=== PATIENT | male | born 1965 | race Caucasian/White ===

== ENCOUNTER 2019-08-06 19:47 | Emergency (ER) | payer OTHER ==
[~2019-08-06] VITALS: Ht 180.3 cm; Wt 108.8 kg
[2019-08-06 19:50] VITALS: BP 162/89
--- NOTE | 2019-08-06 19:53 | PHYS DOC ---
General Adult HPI: HPI: Patient is a 54 year old MALE who presents with BACK pain. Pt. not in room at 2123. Review of Systems: Review of Systems: Pt.not in room Heart Score: Risk Factors: Risk Factors: DM, Current or recent (<one month) smoker, HTN, HLP, family histo ry of CAD, obesity. Risk Scores: Score 0 - 3: 2.5% MACE over next 6 weeks - Discharge Home Score 4 - 6: 20.3% MACE over next 6 weeks - Admit for Clinical Observation Score 7 - 10: 72.7% MACE over next 6 weeks - Early Invasive Strategies Physical Exam: PE: Pt. not in room EKG: EKG: [] Radiology/Procedures: Radiology/Procedures: [] Course & Med Decision Making: Course & Med Decision Making Pertinent Labs and Imaging studies reviewed. (See chart for details) Pt. not in room. Note pt. did return to ED to complete his exam later in the night. [] Dragon Disclaimer: Dragon Disclaimer: This electronic medical record was generated, in whole or in part, using a voice recognition dictation system. Departure Departure: Disposition: 01 HOME/RESIDENCE PRIOR TO ADM Condition: STABLE Referrals: PCP,NO (PCP) Dragon Disclaimer This chart was dictated in whole or in part using Voice Recognition software in a busy, high-work load, and often noisy Emergency Department environment. It may contain unintended and wholly unrecognized errors or omissions. Dragon Disclaimer This chart was dictated in whole or in part using Voice Recognition software in a busy, high-work load, and often noisy Emergency Department environment. It may contain unintended and wholly unrecognized errors or omissions. GUSTABO BENAVIDES MD Aug 06, 2019 19:53
[2019-08-07] MEDS ORDERED: HYDR-1179 PO (02:37)
== END 2019-08-06 21:23 | disposition home or self-care (01) ==
LOC: ER 19:47
DX: M54.5 Low back pain (principal); Z53.21 Procedure and treatment not carried out due to patient leaving prior to being seen by health care provider

== ENCOUNTER 2019-08-06 22:30 | Emergency (ER) | payer OTHER ==
[~2019-08-06] VITALS: Ht 180.3 cm; Wt 108.8 kg
--- NOTE | 2019-08-06 22:35 | PHYS DOC ---
Past History Past Medical History: [place], Sciatica Additional Past Surgical Histo: ladder in neck, rods in right leg, caridiac stent Alcohol Use: None Drug Use: Marijuana General Adult HPI: HPI: ".. I was here earlier... but got impatient... and left... I decided to come back...."... " I hurting too much..."..."..I had pain off and on... months...but it gotten really bad ... after I over ate yesterday...." Patient is a 54 year old male who presents with complaints of Rt. lower abdomen pain. Patient denies any intake of bad food. Did overeat yesterday but no one else got sick eating the same food. Patient did have a stool today. Patient denies any problems with urination. Patient denies any trauma. Patient denies any recent travel outside the [place] area. Patient denies any significant ill contacts. No family history of gallbladder disease, colitis, kidney stones. 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 Patient denies history of lumbosacral pain except for the last 2 days. Patient denies any significant health problems. Patient does have some recent complaints of constipation. Review of Systems: Review of Systems: Constitutional: Denies fever or chills Eyes: Denies change in visual acuity HENT: Denies nasal congestion or sore throat Respiratory: Denies cough or shortness of breath Cardiovascular: Denies chest pain or edema GI: Complains of right lower abdominal pain, nausea,. Denies vomiting, bloody stools or diarrhea. Some complaints of constipation : Denies dysuria Musculoskeletal: Denies back pain or joint pain Integument: Denies rash Neurologic: Denies headache, focal weakness or sensory changes Endocrine: Denies polyuria or polydipsia Lymphatic: Denies swollen glands Psychiatric: Denies depression or anxiety Heart Score: Risk Factors: Risk Factors: DM, Current or recent (<one month) smoker, HTN, HLP, family history of CAD, obesity. Risk Scores: Score 0 - 3: 2.5% MACE over next 6 weeks - Discharge Home Score 4 - 6: 20.3% MACE over next 6 weeks - Admit for Clinical Observation Score 7 - 10: 72.7% MACE over next 6 weeks - Early Invasive Strategies Family History: Family History: Noncontributory to presentation Current Medications: Current Meds: See nursing for home meds Allergies: Allergies: Allergies Coded Allergies Type Severity Reaction Last Updated Verified No Known Allergies Allergy Unknown 08/06/19 Yes Physical Exam: PE: Constitutional: Moderate acute distress, non-toxic appearance. [] HENT: Normocephalic, atraumatic, bilateral external ears normal, oropharynx moist, no oral exudates, nose normal. [] Eyes: PERRLA, EOMI, conjunctiva normal, no discharge. [] Neck: Normal range of motion, no tenderness, supple, no stridor. [Scar Cardiovascular: Bradycardic heart rate regular rhythm, no murmur [] PM slightly to the left Lungs & Thorax: Bilateral breath sounds equal at apex on auscultation [] Abdomen: Bowel sounds normal, soft, has right lower quadrant tenderness, no masses, no pulsatile masses. Obese. Circumcised male. Testicles nontender. Patient declined rectal exam at this time. Skin: Warm, dry, no erythema, no rash. [] Back: No tenderness, no CVA tenderness. [] Extremities: No tenderness, no cyanosis, no clubbing, ROM intact, no edema. Scar right leg Neurologic: Alert and oriented X 3, normal motor function, normal sensory function, no focal deficits noted. [] Psychologic: Affect anxious, judgement normal, mood normal. [] EKG: EKG: My interpretation of EKG shows a sinus rhythm at 60 bpm. No findings of acute STEMI with contralateral changes. [] Radiology/Procedures: Radiology/Procedures: [[address] [address] IMAGING REPORT Signed PATIENT: ADIN HOWARD EACCOUNT: [id number] : 1965 LOCATION: ER AGE: 54 SEX: M EXAM STATUS: REG ER ORD. PHYSICIAN: GUSTABO BENAVIDES MD REASON: pain Rt. lower ABDOMEN, LBP - RIGHT SIDE, NKI PROCEDURE: CT LUMBAR SPINE WO CONTRAST CT lumbar spine without contrast. CT abdomen and pelvis with contrast. Contrast: 75 mL Omnipaque 300 intravenous contrast, and oral contrast. HISTORY: Right lower quadrant pain, right lower abdomen pain, low back pain right side. Lumbar spine findings: Lumbar vertebral body height and alignment intact. No fracture. No spondylolysis defect. Aortoiliac calcified plaque. Paraspinal tissues are unremarkable. Lumbar disc bulges are present largest is a bulky L5-S1 disc osteophyte which combined with lower lumbar facet spurring contributes to severe spinal canal and moderate to severe neural foraminal stenoses. There is lesser fgoo-sr-ruxknnoq spinal canal and neural foraminal stenosis at L4-5. IMPRESSION: No acute osseous injury of the lumbar spine. Lumbar disc disease and arthritis as described above. CT abdomen findings: Right lower lobe 5 mm solid nodule with adjacent linear scarring or atelectasis image 1-2. Liver, gallbladder, pancreas, spleen, adrenal glands and left kidney unremarkable. Subcentimeter right renal lower pole hypodensity too small to characterize due to volume averaging most likely a small cyst. Appendix is negative. No obstruction or inflammatory changes in GI tract. No abdominal fluid or adenopathy. 1 cm fatty umbilical abdominal wall hernia. Pelvis findings: Bladder, prostate, rectum and bones are unremarkable. No pelvic fluid or adenopathy. IMPRESSION: 1. No acute process. The appendix is negative. 2. 5 mm solid nodule of the right lower lobe. Per Fleischner guidelines if the patient has risk factors for malignancy optional CT follow-up in 12 months would be advised, otherwise no follow-up is necessary. Exposure: One or more of the following individualized dose reduction techniques were utilized for this examination: 1. Automated exposure control 2. Adjustment of the mA and/or kV according to patient size 3. Use of iterative reconstruction technique Electronically signed by: Fawn Coles MD (08/07/2019 2:14 AM) [id number] DICTATED AND SIGNED BY: FAWN COLES MD DATE: 08/07/19213 CC: GUSTABO BENAVIDES MD; PCP,NO ~ ][address] [address] IMAGING REPORT Signed PATIENT: ADIN HOWARD EACCOUNT: [id number] : 1965 LOCATION: ER AGE: 54 SEX: M EXAM STATUS: REG ER ORD. PHYSICIAN: GUSTABO BENAVIDES MD REASON: RLQ PAIN AND SPASMS, X A FEW HOURS PROCEDURE: ACUTE ABDOMEN SERIES PA chest and AP upright supine abdomen x-rays HISTORY: Right lower quadrant abdominal pain. FINDINGS: ACDF. Heart size normal. No pulmonary opacities. No pleural effusions. No pneumoperitoneum on the upright chest. There is a moderate volume of stool within the large bowel. Flanks are partially outside the [id number]-ws-[id number]. No dilated bowel loops or abnormal air-fluid levels to suggest ileus or small bowel obstruction. Bones are unremarkable. IMPRESSION: No acute process in the chest. No small bowel obstruction. Moderate volume of stool is present. Electronically signed by: Fawn Coles MD (08/06/2019 11:48 PM) [id number] DICTATED AND SIGNED BY: FAWN COLES MD DATE: 08/06/19 2983 CC: GUSTABO BENAVIDES MD; PCP,NO ~ Course & Med Decision Making: Course & Med Decision Making Pt.to stay on clear fluid diet x 48 hrs. Follow up with primary and review ED labs and workup. Return if any concerns. Pertinent Labs and Imaging studies reviewed. (See chart for details) Impression: 1. Right lower quadrant pain 2. Elevated Lipase 588 3. Constipation 4. Rt.Lower Pul. nodule 5. Multilevel DJD -Lumbar foramen stenosis Moderated to Severe at L5-S1 6. Suspect Sciatica [] Dragon Disclaimer: Charles Disclaimer: This electronic medical record was generated, in whole or in part, using a voice recognition dictation system. Departure Departure: Disposition: HOME/RESIDENCE PRIOR TO ADM Condition: STABLE Referrals: PCP,NO (PCP) Scripts Hydrocodone/Ibuprofen (HYDROCODONE-IBUPROFEN 7.5-200 ) 1 Each Tablet 1 TAB PO PRN Q6HRS PRN for PAIN, #30 TAB 0 Refills Prov: GUSTABO BENAVIDES MD 08/07/19 Dragon Disclaimer This chart was dictated in whole or in part using Voice Recognition software in a busy, high-work load, and often noisy Emergency Department environment. It m ay contain unintended and wholly unrecognized errors or omissions. GUSTABO BENAVIDES MD Aug 06, 2019 22:35
[2019-08-06 22:39] VITALS: BP 162/89
--- NOTE | 2019-08-06 22:58 | EKG ---
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
[2019-08-06] MEDS ORDERED: KETOROLAC 30 MG/ML VIAL. IVP ONE (23:00)
[2019-08-06] MEDS ORDERED: IV RINGERS SOLUTION,LACTATED 1,000 ML IV SCH (23:00)
[2019-08-06] MEDS ORDERED: ONDANSETRON PF 4 MG/2 ML VIAL. IVP ONE (23:00)
[2019-08-06] MEDS ORDERED: FAMOTIDINE 20 MG/2 ML VIAL IVP ONE (23:00)
[2019-08-06 23:28] LABS: BASO % 1 % (0-3); EOS # 0.2 x10^3/uL (0.0-0.7); EOS % 3 % (0-3); HEMATOCRIT 45.1 % (39.0-53.0); LYMPH # 2.7 x10^3/uL (1.0-4.8); LYMPH % 33 % (24-48); MEAN CORPUSCULAR HEMOGLOBIN 31 pg (25-35); MEAN CORPUSCULAR HGB CONC 33 g/dL (31-37); MEAN CORPUSCULAR VOLUME 92 fL (79-100); MONO # 0.8 x10^3/uL (0.0-1.1); MONO % 10 % (0-9); NEUT # 4.3 x10^3uL (1.8-7.7); NEUT % 53 % (31-73); PLATELET COUNT 176 x10^3/uL (140-400); RED BLOOD COUNT 4.89 x10^6/uL (4.30-5.70); RED CELL DISTRIBUTION WIDTH 14.1 % (11.5-14.5); WHITE BLOOD COUNT 8.1 x10^3/uL (4.0-11.0)
[2019-08-06 23:35] LABS: BACTERIA,URINE 0 /HPF (0-FEW); BILIRUBIN,URINE NEG (NEG); CLARITY,URINE CLEAR; COLOR,URINE YELLOW; GLUCOSE,URINE NEG (NEG); NITRITE,URINE NEG (NEG); RBC,URINE 0 /HPF (0-2); UROBILINOGEN,URINE 0.2 mg/dL (0.2 mg/dL); WBC,URINE OCC /HPF (0-4)
[2019-08-06 23:36] LABS: SQUAMOUS EPITHELIAL CELL,UR FEW /LPF
[2019-08-06 23:36] LABS: CALCIUM 8.6 mg/dL (8.5-10.1); CREATININE 0.8 mg/dL (0.7-1.3); GFR 101.1; POTASSIUM 3.8 mmol/L (3.5-5.1)
[2019-08-06 23:38] LABS: AMPHETAMINE/METHAMPHETAMINE NEG (NEG); BARBITURATES NEG (NEG); BENZODIAZEPINES NEG (NEG); CANNABINOIDS POS (NEG); COCAINE NEG (NEG); METHADONE NEG (NEG); OPIATES NEG (NEG); PHENCYCLIDINE NEG (NEG)
[2019-08-06 23:42] LABS: ALBUMIN 3.5 g/dL (3.4-5.0); DIRECT BILIRUBIN 0.1 mg/dL (0.0-0.2); TOTAL BILIRUBIN 0.5 mg/dL (0.2-1.0); TOTAL PROTEIN 6.4 g/dL (6.4-8.2)
--- NOTE | 2019-08-06 23:51 | RAD ---
PA chest and AP upright supine abdomen x-rays HISTORY: Right lower quadrant abdominal pain. FINDINGS: ACDF. Heart size normal. No pulmonary opacities. No pleural effusions. No pneumoperitoneum on the upright chest. There is a moderate volume of stool within the large bowel. Flanks are partially outside the gfmfa-hz-zxze. No dilated bowel loops or abnormal air-fluid levels to suggest ileus or small bowel obstruction. Bones are unremarkable. IMPRESSION: No acute process in the chest. No small bowel obstruction. Moderate volume of stool is present. Electronically signed by: Blas Coles MD (08/06/2019 11:48 PM) [id number]
[2019-08-07] MEDS ORDERED: IOHEXOL 240 MG/ML 50ML VIAL. PO ONE (00:30)
[2019-08-07] MEDS ORDERED: CONTRAST GIVEN MC PRN (00:30)
[2019-08-07] MEDS ORDERED: IOHEXOL 300 MG/ML 75 ML VIAL. IV ONE (00:30)
--- NOTE | 2019-08-07 02:16 | RAD ---
CT lumbar spine without contrast. CT abdomen and pelvis with contrast. Contrast: 75 mL Omnipaque 300 intravenous contrast, and oral contrast. HISTORY: Right lower quadrant pain, right lower abdomen pain, low back pain right side. Lumbar spine findings: Lumbar vertebral body height and alignment intact. No fracture. No spondylolysis defect. Aortoiliac calcified plaque. Paraspinal tissues are unremarkable. Lumbar disc bulges are present largest is a bulky L5-S1 disc osteophyte which combined with lower lumbar facet spurring contributes to severe spinal canal and moderate to severe neural foraminal stenoses. There is lesser zwpi-hr-vluuwzco spinal canal and neural foraminal stenosis at L4-5. IMPRESSION: No acute osseous injury of the lumbar spine. Lumbar disc disease and arthritis as described above. CT abdomen findings: Right lower lobe 5 mm solid nodule with adjacent linear scarring or atelectasis image 1-2. Liver, gallbladder, pancreas, spleen, adrenal glands and left kidney unremarkable. Subcentimeter right renal lower pole hypodensity too small to characterize due to volume averaging most likely a small cyst. Appendix is negative. No obstruction or inflammatory changes in GI tract. No abdominal fluid or adenopathy. 1 cm fatty umbilical abdominal wall hernia. Pelvis findings: Bladder, prostate, rectum and bones are unremarkable. No pelvic fluid or adenopathy. IMPRESSION: 1. No acute process. The appendix is negative. 2. 5 mm solid nodule of the right lower lobe. Per Fleischner guidelines if the patient has risk factors for malignancy optional CT follow-up in 12 months would be advised, otherwise no follow-up is necessary. Exposure: One or more of the following individualized dose reduction techniques were utilized for this examination: 1. Automated exposure control 2. Adjustment of the mA and/or kV according to patient size 3. Use of iterative reconstruction technique Electronically signed by: Blas Coles MD (08/07/2019 2:14 AM) [id number]
[2019-08-07] MEDS ORDERED: MAGNESIUM HYDROXIDE 2,400 MG/30 ML ORAL.SUSP. PO ONE (02:30)
[2019-08-07] MEDS ORDERED: HYDR-1179 PO (02:37)
[2019-08-07] MEDS ORDERED: MAGNESIUM HYDROXIDE 2,400 MG/30 ML ORAL.SUSP. ONE (02:45)
--- NOTE | 2019-08-07 17:04 | EKG ---
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
== END 2019-08-07 02:51 | disposition home or self-care (01) ==
LOC: ER 22:30
DX: K59.00 Constipation, unspecified (principal); R10.31 Right lower quadrant pain; R74.8 Abnormal levels of other serum enzymes; M47.816 Spondylosis without myelopathy or radiculopathy, lumbar region; R91.1 Solitary pulmonary nodule; I25.2 Old myocardial infarction
CPT/HCPCS: 36415; 72131; 74022; 74177; 80048; 80076; 80307; 81001; 82150; 82550; 83605; 83690; 84484; 85025; 85610; 85730; 93005; 96374; 96375; 99285; J1885; J2405; J3490; J7120; Q9966; Q9967

== ENCOUNTER 2019-10-25 08:29 | Observation (INO) | payer OTHER ==
[~2019-10-25] VITALS: Ht 180.3 cm; Wt 103.4 kg
[~2019-10-25 08:29] MED LIST: HYDR-1179 PO; PANTOPRAZOLE 40 MG TABLET. PO SCH
--- NOTE | 2019-10-25 08:41 | PHYS DOC ---
Past History Past Medical History: CAD, Diabetes (diet controlled), High Cholesterol, Hypertension, [place], Sciatica Additional Past Medical Histor: broken neck and right leg Past Surgical History: Other Additional Past Surgical Histo: cervical, rods in right leg, caridiac stent Smoking: Quit Greater Than 1 Year Alcohol Use: None Drug Use: Marijuana General Adult EDM: Chief Complaint: Chest pain HPI: HPI: 54-year-old male presents with report of midsternal chest discomfort with radiation to his back that started approximately 2 hours prior to arrival. Denies diaphoresis or nausea/vomiting. Denies leg swelling or calf tenderness. Denies pleuritic pain. Denies trauma. Denies fever or chills. Denies cough. Patient with significant cardiac risk factors with prior CAD requiring stent placement, high blood pressure, high cholesterol, former smoking, and diet- controlled diabetes. Patient also reports family history of CAD. Denies history or family history of PE/DVT. Denies leg swelling or calf tenderness. Review of Systems: Review of Systems: Constitutional: Denies fever or chills Eyes: Denies redness or eye pain HENT: Denies nasal congestion or sore throat Respiratory: Denies cough or shortness of breath Cardiovascular: Reports chest pain; denies palpitations GI: Denies abdominal pain, nausea, or vomiting : Denies dysuria or hematuria Musculoskeletal: Reports back pain; denies leg swelling or calf tenderness Integument: Denies rash or skin lesions Neurologic: Denies headache, focal weakness or sensory changes Complete systems were reviewed and found to be within normal limits, except as documented in this note. Heart Score: HEART Score for Chest Pain: HEART Score for Chest Pain Response (Comments) Value History Moderately Suspicious 1 ECG Normal 0 Age >45 - < 65 1 Risk Factors >3 Risk Factors or Hx CAD 2 Troponin < Normal Limit 0 Total 4 Risk Factors: Risk Factors: DM, Current or recent (<one month) smoker, HTN, HLP, family history of CAD, obesity. Risk Scores: Score 0 - 3: 2.5% MACE over next 6 weeks - Discharge Home Score 4 - 6: 20.3% MACE over next 6 weeks - Admit for Clinical Observation Score 7 - 10: 72.7% MACE over next 6 weeks - Early Invasive Strategies Allergies: Allergies: Allergies Coded Allergies Type Severity Reaction Last Updated Verified No Known Allergies Allergy Unknown 4/20/20 Yes Physical Exam: PE: Constitutional: Well developed, well nourished, no acute distress, non-toxic appearance HENT: Normocephalic, atraumatic Eyes: Conjunctiva normal, no discharge Neck: Normal range of motion, no tenderness, supple Lungs & Thorax: No respiratory distress, equal chest rise and fall Skin: Warm, dry, no erythema, no rash Extremities: No tenderness, ROM intact, no edema Neurologic: Alert and oriented X 3, no focal deficits noted Psychologic: Affect anxious, judgment normal EKG: EKG: @0838 NSR at 60bpm, NO ST elevation, QRS 72ms, QT/QTc 394/398ms Radiology/Procedures: Radiology/Procedures: PROCEDURE: CHEST PA & LATERAL PA and lateral chest radiographs 10/25/2019 CLINICAL HISTORY: Chest tightness. History of coronary artery disease. PA and lateral digital radiographs of the chest were obtained. Comparison study is dated 08/07/2019. An anterior plate and bone screws are seen within the mid/lower cervical vertebrae. The cardiac and mediastinal silhouettes are within normal limits in size and configuration. A coronary artery stent is seen in the expected location of the proximal right coronary artery. No acute pulmonary infiltrate is noted. No pneumothorax or pleural effusion is seen. The osseous structures are unchanged. IMPRESSION: No acute abnormality is seen. Electronically signed by: Jean Novoa MD (10/25/2019 10:11 AM) [id number] Course & Med Decision Making: Course & Med Decision Making Pertinent Labs and Imaging studies reviewed. (See chart for details) Patient presents with substernal chest pain with radiation to his back. Significant cardiac risk factors. EKG stable. Labs obtained and posted to chart. Initial troponin negative. D-dimer also within normal limits. CXR without acute process. HEART score 4. Patient requiring observation admission for further evaluation and treatment. Discussed with Dr. Dumont (hospitalist) who is in agreement with admission. D iscussed findings and plan with patient, who acknowledges understanding and agreement. Dragon Disclaimer: Charles Disclaimer: This electronic medical record was generated, in whole or in part, using a voice recognition dictation system. Departure Departure: Impression: Primary Impression: Chest pain Qualified Codes: R07.9 - Chest pain, unspecified Disposition: ADMITTED INPATIENT Admitting Physician: Patrick Dumont Condition: STABLE Referrals: KATINA PURI MD (PCP) Justification of Admission: Justification of Admission: Justification of Admission Dx: Yes Comments: Chest pain r/o ACS ADIN RANGEL DO Oct 25, 2019 08:41
[2019-10-25] MEDS ORDERED: IV NORMAL SALINE 1,000ML 1,000 ML IV ONE (08:45)
[2019-10-25] MEDS ORDERED: ASPIRIN CHEWABLE 81 MG TABLET. PO ONE (08:45)
--- NOTE | 2019-10-25 08:46 | EKG ---
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
[2019-10-25 09:14] LABS: BASO % 1 % (0-3); EOS # 0.1 x10^3/uL (0.0-0.7); EOS % 2 % (0-3); HEMOGLOBIN 15.9 g/dL (13.0-17.5); LYMPH % 31 % (24-48); MEAN CORPUSCULAR HEMOGLOBIN 32 pg (25-35); MEAN CORPUSCULAR HGB CONC 35 g/dL (31-37); MEAN CORPUSCULAR VOLUME 92 fL (79-100); MONO # 0.7 x10^3/uL (0.0-1.1); MONO % 11 % (0-9); NEUT # 3.4 x10^3uL (1.8-7.7); NEUT % 55 % (31-73); PLATELET COUNT 189 x10^3/uL (140-400); RED BLOOD COUNT 5.02 x10^6/uL (4.30-5.70); RED CELL DISTRIBUTION WIDTH 14.4 % (11.5-14.5); WHITE BLOOD COUNT 6.2 x10^3/uL (4.0-11.0)
[2019-10-25 09:22] LABS: CALCIUM 8.9 mg/dL (8.5-10.1); CREATININE 1.1 mg/dL (0.7-1.3); POTASSIUM 4.3 mmol/L (3.5-5.1)
[2019-10-25 09:39] LABS: ALBUMIN 3.6 g/dL (3.4-5.0); MAGNESIUM 1.9 mg/dL (1.8-2.4); TOTAL BILIRUBIN 0.6 mg/dL (0.2-1.0); TOTAL PROTEIN 7.2 g/dL (6.4-8.2)
[2019-10-25] MEDS ORDERED: ASPI-482 PO (09:49)
--- NOTE | 2019-10-25 10:14 | RAD ---
PA and lateral chest radiographs 10/25/2019 CLINICAL HISTORY: Chest tightness. History of coronary artery disease. PA and lateral digital radiographs of the chest were obtained. Comparison study is dated 08/07/2019. An anterior plate and bone screws are seen within the mid/lower cervical vertebrae. The cardiac and mediastinal silhouettes are within normal limits in size and configuration. A coronary artery stent is seen in the expected location of the proximal right coronary artery. No acute pulmonary infiltrate is noted. No pneumothorax or pleural effusion is seen. The osseous structures are unchanged. IMPRESSION: No acute abnormality is seen. Electronically signed by: Jean Novoa MD (10/25/2019 10:11 AM) [id number]
[2019-10-25] MEDS ORDERED: DEXTROSE 50% 25 GM / 50ML DISP.SYRIN. IV PRN (10:15)
[2019-10-25] MEDS ORDERED: INSULIN LISPRO 300 UNITS/3 ML VIAL. SQ SCH (12:00)
[2019-10-25 12:02] VITALS: BP 136/85
--- NOTE | 2019-10-25 12:12 | HP ---
ADMIT DATE: 10/25/2019 ATTENDING PHYSICIAN: Dr. Salas. CHIEF COMPLAINT: Chest pain. HISTORY OF PRESENT ILLNESS: The patient is a 54-year-old gentleman admitted through the ED with new onset earlier today of epigastric pain, which he describes as a tightness. He does have a previous history of coronary artery disease, treated at the [facility] since closed, he still has a primary care physician here in [place]. He was seen in our ED, his EKG was entirely normal. His enzymes were negative. The patient has been taking ibuprofen in the last week for headaches. I do believe he has NSAID gastritis. In any event, he is here admitted for observation. I will stop the NSAID, start him on a proton pump inhibitor. In addition, I will order serial cardiac enzymes. PAST MEDICAL HISTORY: Significant for broken neck due to trauma and right leg fracture. He has coronary artery disease with previous catheterization, stent placed 3 years ago. Exact anatomy is unclear. He has had diet-controlled diabetes, hyperlipidemia, essential hypertension, sciatica. SOCIAL HISTORY: He had been a smoker. He quit 3 years ago. CURRENT MEDICATIONS: Include 1 baby aspirin. He also takes Coreg 3.125 mg b.i.d., hydrocodone p.r.n., and cholesterol meds. He is unclear of the name or dosage. ALLERGIES: He has no known drug allergies. He is a nondrinker. He drinks a small amount of caffeine. FAMILY HISTORY: Father of stroke at age 61. Mother is alive and healthy at age 88. REVIEW OF SYSTEMS: Significant for nonspecific headache. 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 He has had no hematemesis. No fevers, chills, cough, congestion. All other systems reviewed and determined to be negative. PHYSICAL EXAMINATION: GENERAL: When I saw him, this is a pleasant, middle-aged gentleman. INITIAL VITAL SIGNS: Showed a blood pressure of 138/81 mmHg, pulse is 60 and regular, temperature 97.5 degrees Fahrenheit, and his oxygen saturation were 98% on room air. HEENT: Head is without trauma. Pupils are reactive. Sclerae is nonicteric. Oropharynx clear. NECK: Supple, no bruits identified. LUNGS: Otherwise clear. CARDIOVASCULAR: Showed regular heart tones. Normal S1, S2. No gallops, no murmurs. Peripheral pulses are palpable and full. ABDOMEN: Soft, scaphoid, nontender, no organomegaly. Bowel sounds were normoactive. EXTREMITIES: Showed no cyanosis or edema. NEUROLOGIC: Focally intact. SKIN: Warm and dry. The 12-lead electrocardiogram showed a sinus rhythm, first degree AV block, no acute changes identified. PERTINENT LABORATORY STUDIES: The hemoglobin is maintained at 15.9 g/dL with white count of 6200. Electrolytes, BUN and creatinine all within normal range. Nonfasting blood sugar 145. The first cardiac enzymes were nonischemic. The chest x-ray showed no acute infiltrates or decompensation. ASSESSMENT: 1. A 54-year-old gentleman with nonsteroidal anti-inflammatory drug gastritis. 2. Epigastric pain that is noncardiac in nature. 3. Known history of coronary artery disease with previous catheterization, 1 stent placed 3 years ago. 4. Hypertension. 5. Hyperlipidemia. 6. Borderline diabetes. PLAN: 1. Observation status. 2. Serial cardiac enzymes. 3. Continue some home meds. 4. We shall stop his nonsteroidal anti-inflammatory drug. 5. Empiric proton pump inhibitor. 6. Diet as tolerated. HENRY SALAS MD DR: ADITI/jazzmine JOB#: [id number] / [id number]
[2019-10-25] MEDS ORDERED: MELO7.5T29 PO (13:15)
[2019-10-25] MEDS ORDERED: LISI-334 PO (13:15)
[2019-10-25] MEDS ORDERED: ATOR40TA59 PO (13:15)
[2019-10-25] MEDS ORDERED: CARV3.1230 PO (13:15)
--- NOTE | 2019-10-25 13:39 | NUR ---
NURSING NOTE ADMIT PT ADMIT TO ROOM 113 FOR DX OF CHEST PAIN OBSERVATION. ORDER FROM ED FOR CONSULT CARDIOLOGY CANCELED PER DR SALAS. PT SETTLED IN ROOM. PT STATES HIS PAIN STARTED THIS AM AROUND 0600. PT DENIES ALCOHOL OR SMOKING, STATES HE SMOKES MARIJUANA AT HS FOR SLEEP, BRIGITTE INVOLVED. PT UNAWARE OF PRESCRIPTION NAMES/DOSAGE, CALLED HERMILO, MEDS ENTERED. ORDER FROM DR SALAS TO CONTINUE HOME MEDICATIONS, MELOXICAM ON HOLD. PT STATES HE DOES NOT TAKE THAT MEDICATION ANYMORE ANYWAY. PT A&O. CURRENTLY RESTING IN BED. EDY CHAVES.
[2019-10-25 14:24] VITALS: BP 114/70
[2019-10-25] MEDS ORDERED: ASPIRIN ENTERIC COATED 81 MG TABLET.DR. PO SCH (16:45)
[2019-10-25] MEDS ORDERED: CARVEDILOL 3.125 MG TABLET PO SCH (17:00)
--- NOTE | 2019-10-25 17:49 | NUR ---
NURSING NOTE HEADACHE PT C/O HEADACHE, ORDER OBTAINED FOR TYLENOL 1300MG PO Q8 HRS FROM DR SALAS. PER PHARMACY, DON'T CARRY IT, HAS TO BE 650 PO Q4 HRS INSTEAD. EDY CHAVES.
[2019-10-25] MEDS ORDERED: ACETAMINOPHEN 325 MG TABLET PO PRN (18:00)
[2019-10-25 19:53] VITALS: BP 152/86
[2019-10-25] MEDS ORDERED: ATORVASTATIN CALCIUM 20 MG TABLET PO SCH (21:00)
[2019-10-26 00:16] VITALS: BP 125/66
--- NOTE | 2019-10-26 05:51 | NUR ---
Pt. was calm and cooperative during assessment. Pt. had no complaints of pain or discomfort. Education provided to pt. about BP monitoring. Pt. verbalized understanding.
[2019-10-26 06:20] VITALS: BP 165/93
[2019-10-26] MEDS ORDERED: LISINOPRIL 20 MG TABLET PO SCH (09:00)
--- NOTE | 2019-10-26 09:00 | DS ---
DATE OF DISCHARGE: 10/26/2019 ATTENDING PHYSICIAN: Dr. Salas. FINAL DISCHARGE DIAGNOSES: 1. Atypical chest pain, coronary ischemia ruled out. 2. Nonsteroidal anti-inflammatory drug gastritis. 3. History of known coronary artery disease with previous myocardial infarction 3 years ago and placement of a single coronary stent. 4. Essential hypertension. 5. Headaches related to a neck injury years ago. 6. Borderline diabetes. 7. Hyperlipidemia. HISTORY OF PRESENT ILLNESS: The patient is a 54-year-old gentleman with a previous history of coronary artery disease and 1 stent placed 3 years ago, who presented with chest pressure, substernal in nature and consideration of coronary ischemia. He was admitted for serial enzymes and rule out. PHYSICAL EXAMINATION: Please see my dictated note. PERTINENT LABORATORY AND X-RAY STUDIES: A 12-lead electrocardiogram showed a sinus rhythm. He had first degree AV block, no acute changes identified, otherwise unremarkable ECG. Chest x-ray was clear. Laboratory studies: His hemoglobin was 15.9 g/dL with white count of 6200. Chemistry panel showed normal BUN and creatinine, electrolytes. Three sets of troponins were negative for coronary ischemia. Nonfasting blood sugar was 119 the next day. Liver function, transaminases were all within normal range. COURSE IN HOSPITAL: The patient was admitted to the inpatient unit and monitored. He had no cardiac arrhythmias. We treated him empirically with oral Protonix and I recommend that he stop the ibuprofen use that he was taking [id number]. He did well. Pain subsided. It was resolved. Three sets of cardiac enzymes were negative for coronary ischemia. His blood pressure and vital signs are stable and his fasting sugars were 119 mg/dL. He is instructed to avoid any further nonsteroidal agents. He will continue his Coreg, aspirin and his statin drug. I recommended a prescription for Protonix 40 mg p.o. daily. 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 The patient was discharged then from our hospital in stable condition with explicit instructions and followup care. HENRY SALAS MD DR: [email or web address] JOB#: [id number] / [id number]
--- NOTE | 2019-10-26 09:06 | NUR ---
PATIENT IS DISCHARGED HOME , VS ARE STABLE, DISCHARGED INSTRUCTION AND PRESCRIBED MEDICATIONS ARE REVIEWED, PT VERBALIZED UNDERSTANDING. PT LEFT ROOM 113 VIA AMBULATION. PATIENT STATED HE HAS HIS CAR HERE ON THE PARKING LOT, HE IS DRIVING HIMSELF HOME.
== END 2019-10-26 09:05 | disposition home or self-care (01) ==
LOC: ER 08:29 → 1 SOUTH 10:52
PROVIDERS: ADMIT Hospitalist; ATTEND Hospitalist
DX: R07.89 Other chest pain (principal); I10 Essential (primary) hypertension; E78.5 Hyperlipidemia, unspecified; I25.10 Atherosclerotic heart disease of native coronary artery without angina pectoris; E11.9 Type 2 diabetes mellitus without complications; E78.00 Pure hypercholesterolemia, unspecified; K29.70 Gastritis, unspecified, without bleeding; Z87.891 Personal history of nicotine dependence; Z95.5 Presence of coronary angioplasty implant and graft
CPT/HCPCS: 36415; 71046; 80053; 80061; 82553; 82947; 83690; 83735; 83880; 84484; 85025; 85379; 85610; 85730; 93005; 99285; G0378; J7030; G0379